=== PATIENT | female | born 1995 ===

== ENCOUNTER 2017-02-10 16:33 | Emergency (ER) | payer OTHER ==
[2017-02-10 16:50] VITALS: RESP 18; TEMP 99.4
[2017-02-10] MEDS ORDERED: ACETAMINOPHEN 500 MG 500 MG TAB PO ONE (16:56)
[2017-02-10] MEDS ORDERED: ACETAMINOPHEN 500 MG 500 MG TAB ONE (17:04)
[2017-02-10 17:06] LABS: BASOPHILS % (AUTO) 0 % (0-3); EOSINOPHILS % (AUTO) 0 % (0-9); HEMATOCRIT 32 % (35-47); MEAN CORPUSCULAR HGB CONC 34.3 gm/dl (32.0-36.0); MEAN CORPUSCULAR VOLUME 91 fL (81-99); MONOCYTES % (AUTO) 6.9 % (0-12); NEUTROPHILS % (AUTO) 83.6 % (37-80)
[2017-02-10 17:32] LABS: APPEARANCE,URINE Clear; BILIRUBIN,URINE NEGATIVE (NEGATIVE); COLOR,URINE Dark yellow; GLUCOSE, URINE (UA) NEGATIVE (NEGATIVE); KETONES,URINE NEGATIVE (NEGATIVE); LEUKOCYTE ESTERASE ,URINE NEGATIVE (NEGATIVE); NITRATE,URINE NEGATIVE (NEGATIVE); OCCULT BLOOD,URINE TRACE LYSED (NEG-TRACE); UROBILINOGEN,URINE 0.2 (0.2-1.0 EU)
[2017-02-10 18:10] VITALS: BP 116/71; PULSE 118; O2SAT 98
== END 2017-02-10 20:50 | disposition home or self-care (01) ==
LOC: ED 16:33
DX: R50.9 Fever, unspecified (principal); Z98.890 Other specified postprocedural states
CPT/HCPCS: 36415; 81001; 85025; 99284; 99285